=== PATIENT | female | born 1960 | race Caucasian/White ===

== ENCOUNTER → 2023-07-06 09:39 | Outpatient (REF) | payer BC, SELFPAY | LOC: RAD 09:39 | PROVIDERS: ATTENDING PHYSICIAN Obstetrics & Gynecology; FAMILY PHYSICIAN Student in an Organized Health Care Education/Training Program | DX: M81.0 Age-related osteoporosis without current pathological fracture (principal) | CPT/HCPCS: 77080 ==

== ENCOUNTER → 2024-06-29 16:56 | Outpatient (REF) | payer OTHER, SELFPAY | LOC: WDC 16:56 | PROVIDERS: ATTENDING PHYSICIAN Obstetrics & Gynecology; FAMILY PHYSICIAN Internal Medicine | DX: Z12.31 Encounter for screening mammogram for malignant neoplasm of breast (principal) | CPT/HCPCS: 77063; 77067 ==

== ENCOUNTER 2025-01-10 00:55 | Emergency (ER) | payer OTHER, SELFPAY ==
--- NOTE | 2025-01-10 02:30 | ED.GENMED ---
History of Present Illness
General
Chief Complaint: Back Pain
Source: patient
Exam Limitations: none
Time Seen by Provider: 01/10/25 02:29
Nursing documentation reviewed up to this point in time: agreed with
History of Present Illness
History of Present Illness:
Note:
CHIEF COMPLAINT(S)
Sacral pain.
HISTORY OF PRESENT ILLNESS
The patient is a 64-year-old female with a history of significant lumbar spine pathology, including a major back surgery in 1998 consisting of a laminectomy, discectomy, and hemilaminectomy. The patient reports experiencing sacral pain that began
last night after using the bathroom. She reports that the pain started when she stood up from the toilet and has been persistent since. She described the pain as a sharp, shooting pain localized to the right sacral region into the buttock, rated
between eight and ten on the pain scale. She noted difficulty getting up from the toilet due to the pain, which did not radiate and was unlike previous pains she had experienced. Before this episode, she felt well without any back pain or
significant activity, fall, or precipitating event. She has a history of chronic lumbar disc issues, including past disc herniations and spinal stenosis. The patient regularly uses diclofenac, prescribed by her primary care physician, which has
managed her symptoms until this recent exacerbation. She used a TENS unit at home and took diclofenac at 11:30 PM, noting that the pain has somewhat improved since arrival at the medical facility. She experiences increased pain upon movement but
denies any bladder dysfunction, numbness, tingling, or leg weakness. She reports that because she took the medications prior to arrival to emergency department, she has been feeling a lot better and is now able to walk without significant
discomfort. Patient reports that she no longer follows with the orthopedist and her symptoms are primarily managed by her PCP. Patient reports that steroid course has worked with similar symptoms in the past. She denies any fevers or chills. She
denies any burning with urination, blood in her urine.
PAST MEDICAL AND SURIGICAL HISTORY
Lumbar laminectomy, discectomy, and hemilaminectomy in 1998. History of spinal stenosis and lumbar disc issues.
SOCIAL DETERMINANTS AFFECTING HEALTH
The patient paces herself in daily activities to accommodate her back condition.
MEDICATIONS
Regular use of NSAIDs for back pain management.
PHYSICAL EXAM
General: Alert, no acute distress.
Skin: Warm, dry.
Head: Normocephalic, atraumatic.
Neck: Supple, trachea midline.
Eye, Ears, Nose, Mouth and Throat: Oral mucosa moist.
Cardiovascular: Normal peripheral perfusion, no edema.
Respiratory: Respirations are non-labored.
Gastrointestinal: Abdomen nondistended.
Back: Normal range of motion, normal alignment, pain localized to the sacral region without radiating pain minimal tenderness over the right buttock normal gait
Musculoskeletal: Normal range of motion, normal strength.
Neurological: Alert and oriented to person, place, time, and situation, no focal neurological deficit observed.
Psychiatric: Cooperative, appropriate mood and affect.
PLAN
1. Order lumbar spine X-ray to rule out any potential fracture or acute structural change.
2. Discussed the potential use of steroids to address presumed acute inflammation.
3. Consideration of a Toradol (ketorolac) injection for acute pain if symptoms persist or worsen.
Patient deferred this at this time. Patient requesting muscle relaxant.
4. Recommend follow-up with an business account specialist for long-term management of spinal issues. Referral information provided.
DIFFERENTIAL DIAGNOSIS
The Differential Diagnosis includes, in no particular order and is not limited to:
1. Muscular spasm.
2. Lumbar disc herniation.
3. Spinal stenosis exacerbation.
4. Sacral insufficiency fracture.
5. Osteoarthritis of the spine.
6. Lumbar radiculopathy.
7. Vertebral compression fracture.
8. Inflammatory spondyloarthritis.
9. Myofascial pain syndrome.
10. Sacroiliitis.
CHART REVIEW
Reviewed ER physician documentation from 03/30/2019 patient seen for cervical sprain
Reviewed external medical summary reviewed visit from September 06, 2020 patient seen for osteoarthritis of the spine with radiculopathy patient controlled with etodolac twice a day every day along with PT patient refuses to see physiatry
MDM/DISPOSITION
The patient is a 64-year-old female with a history of significant lumbar spine pathology, including a major back surgery in 1998 consisting of a laminectomy, discectomy, and hemilaminectomy. The patient reports experiencing sacral pain that began
last night after using the bathroom. She reports that the pain started when she stood up from the toilet and has been persistent since. Pain similar in nature to her prior episodes of back pain in the past minus the radicular symptoms. Patient
reports that her pain has been since been improving after taking her medication at home and using the TENS device. Patient denies any urinary symptoms, any bowel or bladder symptoms. Denies any fevers or chills. Suspect acute muscle sprain versus
exacerbation of patient's chronic degenerative disc disease and herniated disc. Considering patient's long history of herniated disc, will start on steroid course and will refer for orthopedist. Discussed tricked return precautions. Patient
stable for discharge. X-ray reviewed by me shows no acute fracture or dislocation
Past History
Past History
ED Past Medical History: Hypercholesterolemia and Other (lumbar stenosis)
Social History
Tobacco: Non-smoker
Personal:
Review of Systems
Review of Systems
All Other Systems: ROS reviewed and negative except as documented in HPI and ROS
Phy Exam
Physical Exam
Physical Exam:
see hpi
Course
Orders/Labs/Results
Orders:
Orders
01/10/25 02:51
CR Lumbar Spine 2 Or 3 Views Urgent
Comment:
Reason For Exam: LOW BACK PAIN
01/10/25 03:38
Baclofen [Lioresal] 5 mg PO NOW STA
01/10/25 03:58
Vital Signs- Treatment ONCE
Frequency: Once
Vital Signs
Initial and Last Documented VS:
Initial Vital Signs
Temp Pulse Resp Pulse Ox
98.8 F 51 16 100
01/10/25 01:15 01/10/25 01:15 01/10/25 01:15 01/10/25 01:15
Last Documented Vital Signs
Temp Pulse Resp BP Pulse Ox
98.8 F 45 20 126/72 98
01/10/25 01:15 01/10/25 04:06 01/10/25 04:06 01/10/25 04:06 01/10/25 04:06
*Pulse Oximetry
SaO2: 100
Oxygen Mode of Delivery: Room air
Patient hypoxic: no
*Critical Care Note
Total Time (30-74mins, 75-104mins- exclusive of procedures): Not Applicable
ED Attending Note
-
Portions of this chart may have been created with voice recognition software.� Occasional wrong word or��sound alike� substitutions may have occurred due to the inherent limitations of voice recognition software.
Discharge Plan
Departure
Patient Disposition: Home (Routine Discharge)
Date of Disposition: 01/10/25
Time of Disposition: 04:06
Patient with high blood pressure during this ER visit?: Yes
Condition: Good
Discharge Problem:
Low back pain
Instructions: Low Back Pain (DC)
Prescriptions:
New
prednisone 20 mg tablet
40 mg PO DAILY 5 Days Qty: 10 0RF
No Action
metaxalone [Skelaxin] 800 MG tablet
800 mg PO TIDPRN PRN (Reason: neck pain) Qty: 12 0RF
Referrals:
Bebeto Alfaro DO [Non-Admitting Privileges, Orthopedics] - Call in 1-3 days for appt
Activity Restrictions/Additional Instructions:
Prednisone has been sent to your pharmacy. You can take 40 mg once daily for 5 days. Please follow up with your PCP. Please call the attached number to schedule follow up with orthopedics.
PLEASE RETURN EMERGENCY DEPARTMENT SHOULD YOU DEVELOP URINARY OR FECAL INCONTINENCE, FEVERS OR CHILLS, INABILITY AMBULATE, LOWER EXTREMITY WEAKNESS, chest pain, shortness of breath, or any other signs or symptoms worrisome to you.
Interventions
Interventions:
*Risk Screen - Suicide Last Done: 01/10/25 01:15
*General Assessment Last Done: 01/10/25 03:00
*Neglect/Abuse Screening Last Done: 01/10/25 03:00
*ED- Fall Risk Assessment Last Done: 01/10/25 03:00
*Nursing Disposition Last Done: 01/10/25 04:41
ED-Musculoskeletal Assessment Last Done: 01/10/25 03:00
Discharge Date and Time
Discharge Date/Time: 01/10/25 04:41
Print Language: FRENCH
[2025-01-10] MEDS: LIORESAL 5 MG PO (04:05)
[2025-01-10 04:06] VITALS: BP 126/72
== END 2025-01-10 04:41 | disposition home or self-care (01) ==
LOC: EMR 00:55
PROVIDERS: EMERGENCY PHYSICIAN Emergency Medicine; FAMILY PHYSICIAN Student in an Organized Health Care Education/Training Program
DX: M54.50 Low back pain, unspecified (principal); M48.061 Spinal stenosis, lumbar region without neurogenic claudication; M47.20 Other spondylosis with radiculopathy, site unspecified; M51.9 Unspecified thoracic, thoracolumbar and lumbosacral intervertebral disc disorder; E78.00 Pure hypercholesterolemia, unspecified
CPT/HCPCS: 99283; 72100